=== PATIENT | male | born 1955 | race African-American/Black ===

== ENCOUNTER 2019-08-06 10:56 | Emergency (ER) | payer MEDICAID ==
[~2019-08-06] VITALS: Ht 167.6 cm; Wt 75.0 kg
[2019-08-06 13:03] VITALS: BP 158/105
== END 2019-08-06 12:56 | disposition home or self-care (01) ==
LOC: ER 10:56
DX: Z76.0 Encounter for issue of repeat prescription (principal); Z86.73 Personal history of transient ischemic attack (TIA), and cerebral infarction without residual deficits
CPT/HCPCS: 99282